=== PATIENT | male | born 1995 | race Hispanic/Latino ===

== ENCOUNTER 2025-07-19 11:27 | Emergency (ER) | payer SELFPAY ==
--- NOTE | ~2025-07-19 | XR_ITS ---
EXAMINATION: XR finger 3rd LT min 2V DATE: 07/19/2025 12:10 INDICATION: Laceration injury to the left third digit TECHNIQUE: Dorsal palmar, lateral and 2 oblique views of the left third digit were obtained COMPARISON: None FINDINGS: There is an oblique laceration extending across the radial aspect of the distal tip of the left third digit. This appears to also separate a portion of the fingernail. There is also a corresponding oblique fracture across the distal radial margin of the tuft of the distal phalanx with 2 mm separation of the tiny flake-like fracture fragment. No other fractures identified. Bone alignment is otherwise normal. Joint spaces are unremarkable. No radiopaque foreign bodies. IMPRESSION: 1. Deep laceration injury at the radial aspect of the tip of the left third digit with underlying open/compound fracture involving a small portion of the tuft of the distal phalanx. Reviewed, dictated and finalized at location A. IMPRESSION: 1. Deep laceration injury at the radial aspect of the tip of the left third dig it with underlying open/compound fracture involving a small portion of the tuft of the distal phalanx.
--- NOTE | ~2025-07-19 | XR_ITS ---
EXAMINATION: XR finger 1st LT min 2V DATE: 07/19/2025 12:10 INDICATION: Knife laceration to the left thumb TECHNIQUE: Dorsal palmar, lateral and oblique views of the left first digit were obtained COMPARISON: None FINDINGS: Bone alignment is normal. No fracture. Joint spaces are normal. Subtle lucent laceration at the soft tissues overlying the tip of the thumb. No radiopaque foreign bodies. IMPRESSION: 1. No radiopaque foreign bodies or osseous abnormality. Reviewed, dictated and finalized at location A.
[2025-07-19 11:42] VITALS: BP 103/74; PULSE 78; RESP 16; TEMP 36.6; O2SAT 100
[2025-07-19] MEDS: TETANUS,DIPHTHERIA,AC PERTUSSIS ADULT (0.5 ML) BOOSTRIX IM (11:56)
--- NOTE | 2025-07-19 15:08 | ED_ITS ---
HPI - Wound/Laceration General Chief Complaint: Wound/Laceration Stated Complaint: 3rd DIGIT LACERATION Time Seen by Provider: 07/19/25 14:44 History of Present Illness HPI narrative: This is a 29-year-old male Faroese-speaking who presents to the ED for finger laceration. Patient states that he was working on a metal cutting machine when his hand slipped and he cut his left middle finger and left thumb. He is unsure of his last tetanus shot. Related Data Allergies Allergy/AdvReac Type Severity Reaction Status Date / Time Pork/Porcine Containing Allergy hives Verified 07/19/25 11:49 Products Review of Systems Review of Systems: Gen.: Denies fevers or chills Eyes: Denies eye pain or visual change ENT: Denies congestion Respiratory: Denies shortness of breath or cough CV: Denies chest pain or palpitations GI: Denies abdominal pain nausea, emesis or diarrhea denies burning, urgency, frequency or hematuria Musculoskeletal: Denies back pain or muscle pain Neuro: Denies numbness, tingling, weakness or focal weakness Skin: As per HPI Except as documented, all other systems reviewed and negative Exam Narrative: APPEARANCE: No acute distress, nontoxic, resting in bed EYES: EOMI HEENT: Normocephalic, atraumatic, OMM RESPIRATORY: No respiratory distress Clear to auscultation bilaterally with no rhonchi wheezing or rales. CARDIOVASCULAR: Regular rate and rhythm without murmurs rubs or gallops. ABDOMINAL: Soft, nontender, nondistended, no rebound or guarding MUSCULOSKELETAl: Moves all extremities. No clubbing, cyanosis or edema. NEURO: Awake and alert. Following commands, speech normal, no focal deficits SKIN:: 3 cm Laceration to the left distal 3rd digit with involvement of the distal aspect of the nail, bleeding controlled. 1 cm laceration to the palmar aspect of the left thumb, well approximated, bleeding controlled PSYCHIATRIC: Normal affect/mood, Course Vital Signs Vital signs: Vital Signs Temperature 97.8 F 07/19/25 11:42 Pulse Rate 78 07/19/25 11:42 Respiratory Rate 16 07/19/25 11:42 Blood Pressure 103/74 07/19/25 11:42 Pulse Oximetry 100 07/19/25 11:42 Oxygen Delivery Room Air 07/19/25 11:42 Temperature 97.8 F 07/19/25 11:42 Pulse Rate 75 07/19/25 16:07 Respiratory Rate 16 07/19/25 16:07 Blood Pressure 113/76 07/19/25 16:07 Pulse Oximetry 100 07/19/25 16:07 Oxygen Delivery Room Air 07/19/25 11:42 Procedures Laceration Laceration 1: Date: 07/19/25 Time: 14:20 Site: hand (middle finger) Side (If applicable): left Size (cm): 3 Description: linear Depth: simple, single layer Local Anesthetic: lidocaine 2% (digital block) Amount of anesthesia used (mL): 2 Pre-repair: wound explored and irrigated ====== Skin Level ====== Skin layer closed with: nylon Size (cm): 5-0 Number of sutures: 4 Technique: simple, interrupted ====== Subcutaneous Layer ====== ====== Muscle Layer ====== ====== Tendon Layer ====== Dressing: gauze Laceration 2: Date: 07/19/25 Time: 14:20 Site: hand (thumb) Side (If applicable): left Size (cm): 2 Description: linear Depth: simple, single layer Pre-repair: irrigated ====== Skin Level ====== Skin layer closed with: dermabond ====== Subcutaneous Layer ====== ====== Muscle Layer ====== ====== Tendon Layer ====== MDM - Wound/Laceration MDM Narrative Medical decision making narrative: 29-year-old male who presented to the ED for laceration. On initial evaluation patient was in no acute distress, afebrile, hemodynamically stable. He did have a laceration through his nail of the left middle finger with no involvement of the nailbed, bleeding was controlled. He also has small laceration to his left thumb. Lacerations were repaired as above. X-ray did reveal tuft laceration as well. Patient was updated on tetanus and was given Ancef. He will be given a prescription for Keflex. He was given a referral to Hand surgery for further evaluation. Patient was agreeable to this plan. Given strict return p recautions. Differential Diagnosis Differential diagnosis: Likely laceration and other (Fracture) Medical Records Attestation: I reviewed the patient's medical records. Imaging Data Radiologist's impression: Impressions Finger X-Ray 07/19/25 12:17 IMPRESSION: 1. No radiopaque foreign bodies or osseous abnormality. Finger X-Ray 07/19/25 12:18 IMPRESSION: 1. Deep laceration injury at the radial aspect of the tip of the left third digit with underlying open/compound fracture involving a small portion of the tuft of the distal phalanx. Discharge Plan Discharge Clinical Impression: Laceration Patient Disposition: Home Condition: Stable Instructions: Antibiotic Form, Laceration (ED) Additional Instructions: Seguimiento con la cirujana de mano Para dolor, malestar o temperatura igual o superior a 38 ?C, alterne los dos medicamentos siguientes seg?n sea necesario. El mahesh es acetaminof?n/Tylenol, 1000 mg cada 6-8 horas, seg?n sea necesario para las indicaciones mencionadas. El santo es ibuprofeno/Motrin, 600 mg cada 6-8 horas, seg?n sea necesario para las indicaciones mencionadas. Patient Language: Faroese Prescriptions: New cephalexin 500 mg capsule 500 mg PO Q12H 14 Days Qty: 28 0RF Follow-up/Referrals: Masha Esquivel MD [Physician, Plastic Surgery] PHYSICIAN,COORDINATOR OF REHABILITATION SERVICES [Primary Care Provider, Internal Medicine]
[2025-07-19] MEDS: ceFAZolin 2 GM in SODIUM CHLORIDE 0.9% IV 50 ML 100 ML IVPB (15:50)
[2025-07-19 16:07] VITALS: BP 113/76; PULSE 75; RESP 16; O2SAT 100
--- NOTE | 2025-07-19 16:48 | PC.NURSE ---
Pt waiting on registration, discharged at this time.
== END 2025-07-19 17:01 | disposition home or self-care (01) ==
PROVIDERS: Emergency Provider Student in an Organized Health Care Education/Training Program
DX: S61.213A Laceration without foreign body of left middle finger without damage to nail, initial encounter (principal); S61.012A Laceration without foreign body of left thumb without damage to nail, initial encounter; Z23 Encounter for immunization; W31.1XXA Contact with metalworking machines, initial encounter
CPT/HCPCS: 12002; 73140; 90471; 90715; 96365; 99284; J0690; J2003